=== PATIENT | male | born 1985 | race Caucasian/White ===

== ENCOUNTER 2019-12-26 08:03 | Emergency (ER) | payer BC ==
[~2019-12-26] VITALS: Ht 188 cm; Wt 93.2 kg
[2019-12-26 08:08] VITALS: Ht 188 cm; Wt 93.2 kg
[2019-12-26] MEDS ORDERED: OMEPRAZOLE40 MG (08:10)
[2019-12-26] MEDS ORDERED: OMEPRAZOLE40 MG PO (08:10)
[2019-12-26 08:38] LABS: HEMATOCRIT 45.9 % (42.0-54.0); HEMOGLOBIN 15.4 g/dL (13.5-17.5); MCH 30.8 pg (26.0-34.0); MCHC 33.6 g/dL (31.0-37.0); MCV 91.8 fL (80.0-100.0); MEAN PLATELET VOLUME 8.6 fL (7.4-10.4); NEUTROPHILS 86.1 % (40-80); PLATELET COUNT 273 10x3/uL (130-400); RDW 13.6 % (11.5-14.5); WBC 13.9 10x3/uL (4.8-10.8)
[2019-12-26] MEDS ORDERED: PEPCID40 MG PO (08:39)
[2019-12-26] MEDS ORDERED: ZYRTEC10 MG PO (08:39)
[2019-12-26] MEDS ORDERED: DECADRON4 MG PO (08:39)
[2019-12-26 08:47] LABS: C-REACTIVE PROTEIN 9.4 mg/dL (0.0-0.9); CALC OSMOLALITY 263 mosm/kg (275-300); CALCIUM 8.7 mg/dL (8.5-10.1); CARBON DIOXIDE 27.3 mmol/L (21.0-32.0); CHLORIDE - SERUM 100 mmol/L (98-107); CREATININE - SERUM 1.1 mg/dL (0.6-1.3); GLUCOSE 88 mg/dL (74-106); POTASSIUM - SERUM 4.1 mmol/L (3.5-5.1); SODIUM 133 mmol/L (136-145); UREA NITROGEN 11 mg/dL (7-18); eGFR NON AFRICAN AMERICAN 81 mL/min (90-120)
[2019-12-26 09:44] VITALS: BP 125/71
== END 2019-12-26 09:45 | disposition home or self-care (01) ==
LOC: D.ER 08:03
PROVIDERS: Emergency Medicine
DX: U07.1 COVID-19 (principal); R05 Cough; R06.02 Shortness of breath; R50.9 Fever, unspecified; J02.9 Acute pharyngitis, unspecified; R11.0 Nausea; M79.10 Myalgia, unspecified site